=== PATIENT | male | born 1960 | race Caucasian/White ===

== ENCOUNTER 2019-08-14 06:32 | Day surgery (SDC) | payer OTHER ==
[~2019-08-14] VITALS: Ht 170.2 cm; Wt 91.1 kg
[~2019-08-14 06:32] MED LIST: ATOR10 PO; NAPR500 PO; Prinivil10 MG PO
== END 2019-08-14 11:06 | disposition home or self-care (01) ==
LOC: ORSCSDS 06:32
PROVIDERS: Orthopaedic Surgery
PROC: 0RNK4ZZ Release Left Shoulder Joint, Percutaneous Endoscopic Approach (ICD-10-PCS; principal; 2019-08-14 08:00)
PROC: 0LS24ZZ Reposition Left Shoulder Tendon, Percutaneous Endoscopic Approach (ICD-10-PCS; principal; 2019-08-14 08:00)
PROC: 0LQ24ZZ Repair Left Shoulder Tendon, Percutaneous Endoscopic Approach (ICD-10-PCS; principal; 2019-08-14 08:00)
DX: M75.112 Incomplete rotator cuff tear or rupture of left shoulder, not specified as traumatic (principal); M75.22 Bicipital tendinitis, left shoulder; M75.42 Impingement syndrome of left shoulder; I10 Essential (primary) hypertension; Z79.899 Other long term (current) drug therapy
CPT/HCPCS: C1713; J0171; J0690; J1885; J2250; J2704; J2710; J2765; J2795; J3010; J7120

== ENCOUNTER 2020-12-04 07:58 | Day surgery (SDC) | payer OTHER ==
[~2020-12-04] VITALS: Ht 170.2 cm; Wt 72.4 kg
== END 2020-12-04 09:24 | disposition home or self-care (01) ==
LOC: ORSCSDS 07:58
PROVIDERS: Surgery
PROC: 0DBP8ZX Excision of Rectum, Via Natural or Artificial Opening Endoscopic, Diagnostic (ICD-10-PCS; principal; 2020-12-04 09:15)
DX: Z12.11 Encounter for screening for malignant neoplasm of colon (principal); K62.1 Rectal polyp; I10 Essential (primary) hypertension; E78.5 Hyperlipidemia, unspecified; Z79.899 Other long term (current) drug therapy
CPT/HCPCS: 88305; J2405; J2704; J7120